=== PATIENT | female | born 1995 | race Asian ===

== ENCOUNTER 2023-06-05 12:39 | Emergency (ER) | payer MEDICAID ==
[~2023-06-05] VITALS: Ht 172.7 cm; Wt 100.0 kg
[2023-06-05 12:44] VITALS: BP 124/76; PULSE 95; RESP 18; TEMP 98.6; O2SAT 99
== END 2023-06-05 16:57 | disposition left against medical advice (07) ==
LOC: ER 13:37
DX: R06.02 Shortness of breath (principal); Z53.21 Procedure and treatment not carried out due to patient leaving prior to being seen by health care provider
CPT/HCPCS: 99281